=== PATIENT | female | born 1945 | race Caucasian/White ===

== ENCOUNTER → 2024-08-13 | Outpatient (REF) | payer MEDICARE ==
[~2024-08-13] MED LIST: METHOTREXATE2.5 MG PO; MUPIROCIN22 GM TOP; NORCO 5-325 TA1 EACH PO; NYSTATIN-TRIAMC15 GM TOP; Z.0.AMBIEN10 MG PO; Z.0.ASACOL400 MG PO; Z.0.BENAZEPRIL HCL20 PO; Z.0.COUMADIN4 MG PO; Z.0.FOLIC ACID1 MG PO; Z.0.GLIMEPIRIDE2 MG PO; Z.0.LEVOXYL137 MCG PO; Z.0.PRILOSEC20 MG PO; Z.0.PROPRANOLOL HCL1 PO; Z.0.SIMVASTATIN20 MG PO; [UNRECOGNIZED DRUG - OTHER] PO
== END ==
LOC: RAD 08:46
PROVIDERS: ATTEND Internal Medicine
DX: J40 Bronchitis, not specified as acute or chronic (principal); I50.32 Chronic diastolic (congestive) heart failure
CPT/HCPCS: 71046

== ENCOUNTER → 2025-04-07 | Outpatient (REF) | payer MEDICARE | LOC: RAD 09:32 | PROVIDERS: ATTEND Internal Medicine | DX: I50.32 Chronic diastolic (congestive) heart failure (principal); J20.9 Acute bronchitis, unspecified | CPT/HCPCS: 71046; 93306 ==

== ENCOUNTER 2025-07-20 14:57 | Emergency (ER) | payer MEDICARE ==
[~2025-07-20] VITALS: Ht 157.5 cm; Wt 80.7 kg
[2025-07-20 16:14] LABS: BASOPHILS % 0.6 % (0.0-1.0); EOSINOPHILS % 2.0 % (0.0-6.0); LYMPHOCYTES % 17.3 % (18.0-39.1); MONOCYTES % 7.6 % (4.4-11.3); NEUTROPHILS % 72.1 % (38.7-80.0); RED CELL DISTRIBUTION WIDTH 15.6 % (11.7-14.4)
[2025-07-20 16:34] LABS: EST GLOMERULAR FILTRATION RATE 24.0 ML/MIN (>=60)
[2025-07-20 19:00] VITALS: PULSE 94; RESP 16; TEMP 98.6
[2025-07-20] MEDS ORDERED: AMOX TR-K CLV1 EAC2 PO (19:36)
[2025-07-20] MEDS ORDERED: VENTOLIN HFA18 GM INH (19:38)
[2025-07-20 19:54] VITALS: BP 152/79; PULSE 94; RESP 16; TEMP 98.2; O2SAT 94
== END 2025-07-20 19:50 | disposition home or self-care (01) ==
LOC: ER 15:53
DX: R06.02 Shortness of breath (principal); R00.0 Tachycardia, unspecified; R05.9 Cough, unspecified; I10 Essential (primary) hypertension; E11.65 Type 2 diabetes mellitus with hyperglycemia; M06.9 Rheumatoid arthritis, unspecified; E78.00 Pure hypercholesterolemia, unspecified; R94.31 Abnormal electrocardiogram [ECG] [EKG]; Z87.19 Personal history of other diseases of the digestive system
CPT/HCPCS: 36415; 71250; 80053; 83880; 84484; 85025; 93005; 99284

== ENCOUNTER 2025-07-26 16:14 | Inpatient (IN) | payer MEDICARE ==
[~2025-07-26] VITALS: Ht 152.4 cm; Wt 71.7 kg
[~2025-07-26 16:14] MED LIST changes: +AMOX TR-K CLV1 EAC2 PO; +VENTOLIN HFA18 GM INH
[2025-07-26 20:00] VITALS: BP 166/84; PULSE 91; TEMP 98.5; O2SAT 99
[2025-07-26 21:00] VITALS: BP 166/84; PULSE 91; TEMP 98.5; O2SAT 99
[2025-07-26 21:29] LABS: EST GLOMERULAR FILTRATION RATE 23.0 ML/MIN (>=60)
[2025-07-26] MEDS: METOPROLOL SUCCINATE 50 MG TAB XL PO SCH (21:32)
[2025-07-26] MEDS: FUROSEMIDE INJ 10 MG/ML 4 ML VIAL IV SCH (21:33)
[2025-07-26] MEDS: ATORVASTATIN 40 MG TAB PO SCH (21:33)
[2025-07-26] MEDS ORDERED: UNISOM50 MG (22:10)
[2025-07-26] MEDS ORDERED: FERROUS SULFAT325 MG PO (22:10)
[2025-07-26] MEDS ORDERED: LEVOTHYROXINE150 MCG PO (22:10)
[2025-07-26] MEDS ORDERED: COLACE100 MG/10 PO (22:10)
[2025-07-26] MEDS ORDERED: BENICAR20 MG PO (22:10)
[2025-07-26] MEDS ORDERED: MAGNESIUM OXID400 MG PO (22:10)
[2025-07-26] MEDS ORDERED: VITAMIN B122500 MCG (22:10)
[2025-07-26] MEDS ORDERED: ARIMIDEX1 MG PO (22:10)
[2025-07-26 22:12] VITALS: BP 166/84; PULSE 91; RESP 18; TEMP 98.5; O2SAT 99
[2025-07-26] MEDS: TEMAZEPAM 15 MG CAP PO PRN (23:58)
[2025-07-27] VITALS (7 sets, daily range): BP systolic 141–174; BP diastolic 62–79; PULSE 60–73; RESP 18; TEMP 97.6–98.1; O2SAT 96–100
[2025-07-27 05:22] LABS: BASOPHILS % 0.5 % (0.0-1.0); EOSINOPHILS % 3.1 % (0.0-6.0); LYMPHOCYTES % 26.9 % (18.0-39.1); MONOCYTES % 9.3 % (4.4-11.3); NEUTROPHILS % 59.8 % (38.7-80.0); RED CELL DISTRIBUTION WIDTH 15.4 % (11.7-14.4)
[2025-07-27 05:40] LABS: INR 3.59
[2025-07-27 05:56] LABS: % IRON SATURATION 4.0 % (15-50); CHOL/HDL RATIO 5.7 (3.0-3.6); EST GLOMERULAR FILTRATION RATE 24.0 ML/MIN (>=60); LDL CHOLESTEROL 115.0 MG/DL (60-130)
[2025-07-27 06:37] LABS: LEUKOCYTE ESTERASE ,URINE NEGATIVE (NEGATIVE); PROTEIN,URINE DIPSTICK NEGATIVE (NEGATIVE); URINE UROBILINOGEN 0.2 mg/dL (0.2 - 1)
[2025-07-27 06:54] LABS: EPITHELIAL CELLS,URINE FEW /LPF; WBC,URINE (MAN) 0-5 /HPF (0-5)
[2025-07-27] MEDS: OLMESARTAN 20 MG TAB PO SCH (11:45)
[2025-07-27] MEDS: SODIUM FERRIC GLUCONATE COMPLX 125 MG in SODIUM CHLORIDE 0.9% 100 ML IV SCH (11:45)
[2025-07-27] MEDS ORDERED: GLIMEPIRIDE4 MG PO (20:32)
[2025-07-27] MEDS ORDERED: DEXTROSE 50% SYRINGE 50 ML IV PRN (20:45)
[2025-07-27] MEDS: INSULIN REGULAR, HUMAN 100 UNIT/1 ML SQ SCH (21:43)
[2025-07-28 03:17] VITALS: BP 151/64; PULSE 72; RESP 18; TEMP 98.2; O2SAT 97
[2025-07-28 05:15] LABS: BASOPHILS % 0.5 % (0.0-1.0); EOSINOPHILS % 2.9 % (0.0-6.0); LYMPHOCYTES % 19.2 % (18.0-39.1); MONOCYTES % 9.4 % (4.4-11.3); NEUTROPHILS % 67.2 % (38.7-80.0); RED CELL DISTRIBUTION WIDTH 15.4 % (11.7-14.4)
[2025-07-28 05:49] LABS: EST GLOMERULAR FILTRATION RATE 19.0 ML/MIN (>=60)
[2025-07-28] MEDS: LEVOTHYROXINE SODIUM 100 MCG TAB PO SCH (06:29)
[2025-07-28 07:00] VITALS: BP 129/87; PULSE 66; RESP 20; TEMP 97.9; O2SAT 99
[2025-07-28] MEDS: OLMESARTAN 20 MG TAB PO SCH (08:52)
[2025-07-28 12:00] VITALS: BP 127/76; PULSE 72; RESP 20; TEMP 97.7; O2SAT 98
[2025-07-28 16:46] VITALS: BP 131/76; PULSE 66; RESP 20; TEMP 97.7; O2SAT 98
[2025-07-28 19:00] VITALS: BP 145/66; PULSE 78; RESP 18; TEMP 98.1; O2SAT 100
[2025-07-28 20:00] VITALS: BP 145/66; PULSE 78; RESP 18; TEMP 98.1; O2SAT 100
[2025-07-29 04:36] VITALS: BP 114/55; PULSE 64; RESP 20; TEMP 97.5; O2SAT 94
[2025-07-29 05:45] LABS: BASOPHILS % 0.6 % (0.0-1.0); EOSINOPHILS % 3.0 % (0.0-6.0); LYMPHOCYTES % 22.2 % (18.0-39.1); MONOCYTES % 7.8 % (4.4-11.3); NEUTROPHILS % 65.0 % (38.7-80.0); RED CELL DISTRIBUTION WIDTH 15.6 % (11.7-14.4)
[2025-07-29 06:06] LABS: EST GLOMERULAR FILTRATION RATE 18.0 ML/MIN (>=60)
[2025-07-29 08:00] VITALS: BP 114/55; PULSE 64; RESP 20; TEMP 97.5; O2SAT 94
[2025-07-29] MEDS ORDERED: SODIUM CHLORIDE 0.9% 1000ML 1,000 ML IV SCH (08:30)
[2025-07-29 09:00] VITALS: BP 116/63; PULSE 66; RESP 18; TEMP 97.2; O2SAT 97
[2025-07-29] MEDS: SODIUM CHLORIDE 0.9% 500ML 500 ML IV SCH (09:23)
[2025-07-29] MEDS ORDERED: METOPROLOL SUCC50 MG PO ×2 (14:42→14:43)
[2025-07-29] MEDS ORDERED: ATORVASTATIN CA40 MG PO (14:42)
[2025-07-29] MEDS ORDERED: LEVOTHYROXINE100 MC1 PO (14:42)
[2025-07-29 14:58] VITALS: BP 126/67; PULSE 71; RESP 20; TEMP 98.6; O2SAT 97
== END 2025-07-29 15:30 | disposition home or self-care (01) | DRG 698 ==
LOC: MED/SURG 19:13 → MED/SURG2 07-28 23:25
PROVIDERS: ADMIT Internal Medicine; ATTEND Internal Medicine
DX: E11.22 Type 2 diabetes mellitus with diabetic chronic kidney disease (principal); I50.33 Acute on chronic diastolic (congestive) heart failure; I13.0 Hypertensive heart and chronic kidney disease with heart failure and stage 1 through stage 4 chronic kidney disease, or unspecified chronic kidney disease; J98.11 Atelectasis; E44.0 Moderate protein-calorie malnutrition; K50.90 Crohn's disease, unspecified, without complications; N18.4 Chronic kidney disease, stage 4 (severe); D50.9 Iron deficiency anemia, unspecified; D63.1 Anemia in chronic kidney disease; I48.0 Paroxysmal atrial fibrillation; M06.9 Rheumatoid arthritis, unspecified; E66.9 Obesity, unspecified; E11.51 Type 2 diabetes mellitus with diabetic peripheral angiopathy without gangrene; E03.9 Hypothyroidism, unspecified; Z79.84 Long term (current) use of oral hypoglycemic drugs; Z79.01 Long term (current) use of anticoagulants; Z79.890 Hormone replacement therapy; Z85.3 Personal history of malignant neoplasm of breast; Z88.8 Allergy status to other drugs, medicaments and biological substances; Z91.041 Radiographic dye allergy status; Z88.5 Allergy status to narcotic agent; Z91.018 Allergy to other foods; Z91.013 Allergy to seafood; Z85.850 Personal history of malignant neoplasm of thyroid; Z68.30 Body mass index [BMI] 30.0-30.9, adult
CPT/HCPCS: 36415; 71045; 80048; 80053; 80061; 81001; 82728; 82948; 83540; 83880; 84443; 84466; 85025; 85610; 93005; 93306; 96372; J1938; J2916; J7040; J7050